=== PATIENT | female | born 1980 | race Two or more races ===

== ENCOUNTER 2019-10-04 15:17 | Inpatient (IN) | payer OTHER ==
[~2019-10-04] VITALS: Ht 157.5 cm; Wt 73.5 kg
[2019-10-22] MEDS ORDERED: INVOKANA100 MG PO (18:08)
[2019-10-22] MEDS ORDERED: METFORMIN HCL500 M3 PO (18:09)
[2019-10-22] MEDS ORDERED: PROTONIX40 MG PO (18:09)
[2019-10-22] MEDS ORDERED: BENICAR HCT 201 EACH PO (18:09)
[2019-10-28] MEDS ORDERED: HYOSCYAMINE0.125 M1 SL (11:24)
[2019-10-28] MEDS ORDERED: GABAPENTIN300 MG PO (11:25)
[2019-10-28] MEDS ORDERED: ANTI-GAS166 MG PO (11:26)
[2019-10-28] MEDS ORDERED: INTESTINEX680 M1 PO (11:26)
[2019-10-28] MEDS ORDERED: ULTRACET PO (11:27)
== END 2019-10-28 12:16 | disposition home or self-care (01) | DRG 327 ==
LOC: SURG 10-24 06:31 → O/R 10-24 06:31 → SURG 10-24 08:45
PROVIDERS: ADMIT Surgery
PROC: 0DQ90ZZ Repair Duodenum, Open Approach (ICD-10-PCS; 2019-10-24)
PROC: 07TB0ZZ Resection of Mesenteric Lymphatic, Open Approach (ICD-10-PCS; 2019-10-24)
PROC: 4A033R1 Measurement of Arterial Saturation, Peripheral, Percutaneous Approach (ICD-10-PCS; 2019-10-24)
PROC: 4A12X4Z Monitoring of Cardiac Electrical Activity, External Approach (ICD-10-PCS; 2019-10-24)
PROC: 0DTF0ZZ Resection of Right Large Intestine, Open Approach (ICD-10-PCS; principal; 2019-10-24 14:00)
DX: C18.2 Malignant neoplasm of ascending colon (principal); K91.71 Accidental puncture and laceration of a digestive system organ or structure during a digestive system procedure; D62 Acute posthemorrhagic anemia; R59.0 Localized enlarged lymph nodes; K63.89 Other specified diseases of intestine; I11.9 Hypertensive heart disease without heart failure; E11.9 Type 2 diabetes mellitus without complications; E66.09 Other obesity due to excess calories; G47.33 Obstructive sleep apnea (adult) (pediatric); Z79.4 Long term (current) use of insulin

== ENCOUNTER 2022-02-08 09:15 | Outpatient (CLI) | payer OTHER ==
[~2022-02-08 09:15] MED LIST: ANTI-GAS166 MG PO; BENICAR HCT 201 EACH PO; GABAPENTIN300 MG PO; HYOSCYAMINE0.125 M1 SL; INTESTINEX680 M1 PO; INVOKANA100 MG PO; METFORMIN HCL500 M3 PO; PROTONIX40 MG PO; ULTRACET PO
== END 2022-02-08 09:25 | disposition home or self-care (01) ==
LOC: NUCLEAR 09:15
PROVIDERS: ATTEND Internal Medicine Cardiovascular Disease
DX: I10 Essential (primary) hypertension (principal)

== ENCOUNTER 2024-09-19 08:11 | Day surgery (SDC) | payer OTHER ==
[2024-09-13 14:40] VITALS: BP 148/93
[~2024-09-19] VITALS: Ht 157.5 cm; Wt 70.3 kg
[~2024-09-19 08:11] MED LIST changes: +IRBESARTAN-HCT1 EAC1 PO; +PROPRANOLOL HCL20 MG PO; +SANDOSTATIN LAR30 MG IM; +TRIJARDY XR 5-1 EACH PO
[2024-09-19] MEDS ORDERED: MORPHINE SULFATE 4 MG/ML VIAL IV ONE ×2 (15:55→16:25)
[2024-09-19] MEDS ORDERED: ENALAPRILAT DIHYDRATE 1.25 MG/ML VIAL IV ONE (17:30)
[2024-09-19] MEDS ORDERED: HEMOSTATIC MATRIX WITH THROMBIN KIT TOP ONE (17:45)
[2024-09-19] MEDS ORDERED: NEURONTIN300 MG PO (17:59)
[2024-09-19] MEDS ORDERED: PERCOCET 5-3251 EACH PO (17:59)
[2024-09-19] MEDS ORDERED: PROTONIX40 MG PO (17:59)
[2024-09-19] MEDS ORDERED: CEFAZOLIN SODIUM 1,000 MG VIAL IV ONE (18:00)
== END 2024-09-19 18:30 | disposition home or self-care (01) ==
LOC: CIR.AMB 08:11
PROVIDERS: ATTEND Surgery
DX: K81.1 Chronic cholecystitis (principal); C7A.8 Other malignant neuroendocrine tumors; C7A.012 Malignant carcinoid tumor of the ileum